=== PATIENT | male | born 1985 | race Caucasian/White ===

== ENCOUNTER 2017-03-23 18:09 | Emergency (ER) | payer OTHER ==
[~2017-03-23 18:09] MED LIST: PRILOSEC40 MG PO
[2017-03-23 18:20] VITALS: BP 149/93
== END 2017-03-23 20:40 | disposition left against medical advice (07) ==
LOC: ED 18:09
DX: Z53.21 Procedure and treatment not carried out due to patient leaving prior to being seen by health care provider (principal)

== ENCOUNTER 2017-03-23 21:38 | Emergency (ER) | payer OTHER ==
[2017-03-23 22:51] LABS: BASOPHIL % 0.2 % (0-2); PLATELET COUNT 197 x10^3mcL (130-400); RED CELL DISTRIBUTION WIDTH 12.8 % (11.5-14.5)
[2017-03-23 23:07] LABS: CARBON DIOXIDE 28.7 mmol/L (21-32); CHLORIDE SERUM 104 mmol/L (98-107); GFR1 > 60 mL/min; GLUCOSE SERUM 96 mg/dL (74-106); POTASSIUM SERUM 3.5 mmol/L (3.5-5.1); SODIUM SERUM 142 mmol/L (136-145)
[2017-03-23 23:11] LABS: ALBUMIN 4.5 g/dL (3.4-5.0); ALKALINE PHOSPHATASE 69 U/L (46-116); ALT/SGPT 25 U/L (16-63); AST/SGOT 18 U/L (15-37); BILIRUBIN TOTAL 0.7 mg/dL (0.20-1.00); TOTAL PROTEIN, SERUM 7.4 g/dL (6.4-8.2)
[2017-03-23 23:14] LABS: AMPHETAMINE QUAL UR NONE DETECTED (NEG <=1000)
[2017-03-24 00:22] VITALS: BP 146/86
== END 2017-03-24 00:22 | disposition home or self-care (01) ==
LOC: ED 21:38
PROVIDERS: Emergency Medicine
DX: R07.89 Other chest pain (principal); F17.200 Nicotine dependence, unspecified, uncomplicated; Z79.899 Other long term (current) drug therapy
CPT/HCPCS: 80307; 83880; 99406

== ENCOUNTER 2018-01-04 15:19 | Emergency (ER) | payer OTHER ==
[~2018-01-04] VITALS: Ht 172.7 cm; Wt 74.8 kg
[2018-01-04 15:21] VITALS: Ht 172.7 cm; Wt 74.8 kg
[2018-01-04] MEDS ORDERED: BROMFED DM COU118 ML PO (16:11)
[2018-01-04] MEDS ORDERED: LEVAQUIN750 MG PO (16:12)
[2018-01-04 16:52] VITALS: BP 132/84
== END 2018-01-04 16:53 | disposition home or self-care (01) ==
LOC: ED 15:19
DX: S61.412A Laceration without foreign body of left hand, initial encounter (principal); K21.9 Gastro-esophageal reflux disease without esophagitis; W31.89XA Contact with other specified machinery, initial encounter; Y93.89 Activity, other specified; Y99.8 Other external cause status; Y92.89 Other specified places as the place of occurrence of the external cause
CPT/HCPCS: A4570; J2001

== ENCOUNTER 2018-05-01 08:32 | Emergency (ER) | payer OTHER ==
[~2018-05-01] VITALS: Ht 172.7 cm; Wt 74.8 kg
[~2018-05-01 08:32] MED LIST changes: +BROMFED DM COU118 ML PO; +LEVAQUIN750 MG PO
[2018-05-01 08:40] VITALS: Ht 172.7 cm; Wt 74.8 kg
[2018-05-01 10:43] VITALS: BP 131/79
== END 2018-05-01 10:43 | disposition home or self-care (01) ==
LOC: ED 08:32
DX: J40 Bronchitis, not specified as acute or chronic (principal); K21.9 Gastro-esophageal reflux disease without esophagitis; Z90.49 Acquired absence of other specified parts of digestive tract
CPT/HCPCS: Q0092

== ENCOUNTER 2019-03-13 15:21 | Emergency (ER) | payer OTHER ==
[~2019-03-13] VITALS: Ht 172.7 cm; Wt 81.2 kg
[2019-03-13 15:28] VITALS: Ht 172.7 cm; Wt 81.2 kg
[2019-03-13 18:45] VITALS: BP 138/75
== END 2019-03-13 18:45 | disposition home or self-care (01) ==
LOC: ED 15:21
DX: J40 Bronchitis, not specified as acute or chronic (principal); R09.1 Pleurisy; F17.200 Nicotine dependence, unspecified, uncomplicated; K21.9 Gastro-esophageal reflux disease without esophagitis; Z90.89 Acquired absence of other organs; Z98.890 Other specified postprocedural states
CPT/HCPCS: 99406

== ENCOUNTER 2019-08-24 16:47 | Emergency (ER) | payer OTHER ==
[~2019-08-24] VITALS: Ht 172.7 cm; Wt 82.6 kg
[2019-08-24 16:59] VITALS: Ht 172.7 cm; Wt 82.6 kg
[2019-08-24 18:18] VITALS: BP 139/83
== END 2019-08-24 18:18 | disposition home or self-care (01) ==
LOC: ED 16:47
DX: J06.9 Acute upper respiratory infection, unspecified (principal)

== ENCOUNTER 2020-04-28 20:51 | Emergency (ER) | payer MEDICAID ==
[~2020-04-28] VITALS: Ht 172.7 cm; Wt 68.0 kg
[2020-04-28 21:17] VITALS: Ht 172.7 cm; Wt 68.0 kg
[2020-04-28 23:27] VITALS: BP 118/71
== END 2020-04-28 23:27 | disposition home or self-care (01) ==
LOC: ED 20:51
DX: S29.011A Strain of muscle and tendon of front wall of thorax, initial encounter (principal); R09.1 Pleurisy; X58.XXXA Exposure to other specified factors, initial encounter; Y93.89 Activity, other specified; Y92.89 Other specified places as the place of occurrence of the external cause; Y99.8 Other external cause status
CPT/HCPCS: Q0092

== ENCOUNTER 2021-01-14 12:50 | Emergency (ER) | payer SELFPAY ==
[~2021-01-14] VITALS: Ht 170.2 cm; Wt 80.7 kg
[2021-01-14 12:58] VITALS: Ht 170.2 cm; Wt 80.7 kg
[2021-01-14 13:36] LABS: BASOPHIL % 0.3 % (0.2-1.5); PLATELET COUNT 191 x10^3mcL (152-348)
[2021-01-14 14:06] LABS: CALCIUM 8.6 mg/dL (8.5-10.1); CARBON DIOXIDE 31.3 mmol/L (21-32); CHLORIDE SERUM 104 mmol/L (98-107); GFR1 > 60 mL/min; GLUCOSE SERUM 125 mg/dL (74-106); POTASSIUM SERUM 3.6 mmol/L (3.5-5.1); SODIUM SERUM 137 mmol/L (136-145)
[2021-01-14 14:11] LABS: ALBUMIN 3.8 g/dL (3.4-5.0); ALKALINE PHOSPHATASE 75 U/L (46-116); ALT/SGPT 32 U/L (16-63); AST/SGOT 17 U/L (15-37); BILIRUBIN TOTAL 0.49 mg/dL (0.20-1.00); TOTAL PROTEIN, SERUM 6.8 g/dL (6.4-8.2)
[2021-01-14 15:39] VITALS: BP 133/60
== END 2021-01-14 15:39 | disposition home or self-care (01) ==
LOC: ED 12:50
PROVIDERS: Specialist
DX: K40.90 Unilateral inguinal hernia, without obstruction or gangrene, not specified as recurrent (principal); K21.9 Gastro-esophageal reflux disease without esophagitis; Z90.89 Acquired absence of other organs